=== PATIENT | female | born 1945 | race Caucasian/White ===

== ENCOUNTER 2023-07-20 11:40 | Outpatient (OUT) | payer SELFPAY ==
--- OUTSIDE RECORDS SUMMARY | 2023-08-03 02:05 | XMS_ITS | CCD ---
Author Name Unknown Address Formerly [facility], [facility] [place] [address] Organization [facility] Care Team Providers Care Boat Captain Name Role Phone REQUEST, DR NONE LISTED Admitting Unavaila ble REQUEST, NONE LISTED Consulting Unavaila ble REQUEST, NONE LISTED Attending Unavaila BILLY Snow Admitting Unavailable BILLY BEAUCHAMP Consulting Unavailable BILLY BEAUCHAMP Attending Unavailable YONAS ESPINOSA Attending Unavailable BAYLEE ODONNELL Referring Unavailable YONAS ESPINOSA Attending Unavailable Encounters Encounter Date Encounter Type Care Provider Facility Start: 07-27-2023 End: 07-27-2023 ambulatory YONAS ESPINOSA Not Available Start: 07-22-2023 End: 07-22-2023 ambulatory YONAS ESPINOSA Not Available Start: 12-10-2020 End: 12-11-2020 ambulatory BILLY BEAUCHAMP Facility:[facility] Start: 11-19-2020 End: 11-20-[address] NAIDU LISTED REQUEST Facility: Payers Date Payer Category Payer Unknown [id number] 2011 Medicare [id number] 1958 Self-pay 1945 Unknown [id number] 1945 Unknown [id number] Unknown [id number] 09.30. [id number] Unknown [id number] 09.30.83 [id number] Summary Purpose Family History No Family History Records FoundNo Family History Records Found Advance Directives No Advanced Directives Records FoundNo Advanced Directives Records Found Additional Source Comments INFORMATION SOURCE (unrecogn ized section and content) DATE CREATED AUTHOR 12/07/2020 [facility] DATE CREATED AUTHOR AUTHORClarita SUAZO 07/29/2023 [facility] dical Specialists [facility] FOR RECORDS PERTAINING TO PATIENTS WHO ARE OR HAVE BEEN ENROLLED IN A CHEMICAL DEPENDENCY/SUBSTANCEABUSE PROGRAM, SOME INFORMATION MAY BE OMITTED. This clinical summary was aggregated from multiple sources. Caution should be exercised in using it in the provision of clinical care. This summary normalizes information from multiple sources, and as a consequence, information in this document may materially change the coding, format and clinical context of patient data. In addition, data may be omitted in some cases. CLINICAL DECISIONS SHOULD BE BASED ON THE PRIMARY CLINICAL RECORDS. [facility] [employer] provides no warranty or guarantee of the accuracy or completeness of information in this document.
== END 2023-07-20 11:41 | disposition home or self-care (01) ==
LOC: PST 11:41
PROVIDERS: Visit Provider Ophthalmology
DX: Z01.818 Encounter for other preprocedural examination (principal); H25.812 Combined forms of age-related cataract, left eye

== ENCOUNTER 2023-07-21 06:54 | Day surgery (SDC) | payer MEDICARE, BC, SELFPAY ==
--- NOTE | 2023-07-20 | HP_ITS ---
Date: 07/20/2023 HISTORY: The patient is a 77-year-old white female presenting complaining of declining vision out of her left eye. This has been moderate in severity, gradually occurring in a constant fashion over the duration of approximately two years. She stated it affected her distance vision as well as work/computer distance. She has difficulty driving at night time due to glare and halos from headlights, and road signs are difficult to make out. PAST OCULAR HISTORY: Denies. PAST SURGICAL HISTORY: Denies. PAST MEDICAL HISTORY: Denies. SOCIAL HISTORY: Denies tobacco, alcohol or recreational drug abuse. SYSTEMIC MEDICATIONS: Denies. ALLERGIES TO MEDICATIONS: Denies. REVIEW OF SYSTEMS: No pertinent positives. PHYSICAL EXAM: GENERAL: In general, she is awake, alert and oriented x3, well developed, well nourished, in no acute distress. HEART: Regular rate and rhythm. LUNGS: Clear bilaterally. ABDOMEN: Soft, non-tender, non-distended. EXTREMITIES: No pitting edema. OPHTHALMIC EXAM: Revealed a visual acuity of 20/80 in the right and 20/60 in the left that glared to 20/400 bilaterally. Pupils motility, muscle balance and confrontational visual camilo within normal limits bilaterally. Pressures are measured at 16 bilaterally. Slit lamp exam revealed blepharitis with a severe decrease in tear film bilaterally. Conjunctiva, cornea, anterior chamber and iris were within normal limits bilaterally. Lens status demonstrated 3+ nuclear sclerosis with 1+ cortical cataract bilaterally. FUNDUS EXAM: Revealed good view with good dilation bilaterally. Optic discs, macula, vessels, periphery and vitreous were within normal limits bilaterally. ASSESSMENT AND PLAN: Visually significant cataract, left eye. After the risks, benefits, and alternatives as well as expectations were delivered to the patient, she elected to go forward with cataract removal. She understands those risks to include but not limited to infection, bleeding, loss of vision or loss of the eye itself. Secondly, she understands that postoperatively she is likely to require spectacle correction for her best visual acuity. Finally, a complete ophthalmic exam was performed and there was not determined to be any other source of vision decline other than that of cataract. After understanding all risks as well as expectations, she elected to go forward with the procedure as listed above and will be doing so in the near future. NABILA
--- NOTE | 2023-07-21 | OP_ITS ---
OPERATION DATE: 07/21/2023 SURGEON: Jayson Farmer M.D. PREOPERATIVE DIAGNOSIS: Nuclear sclerotic cataract left eye. POSTOPERATIVE DIAGNOSIS: Nuclear sclerotic cataract left eye. PROCEDURE NAME: Cataract extraction with intraocular lens placement for the left eye. ANESTHESIA: Topical. ESTIMATED BLOOD LOSS: Zero. COMPLICATIONS: None. PROCEDURE: Patient brought to the operating room in supine position. After proper identification, the left eye was prepped and draped in a sterile ophthalmic fashion. A paracentesis was created at the 5 o'clock position. Approximately 1 mL of unpreserved Xylocaine was injected into the anterior chamber followed by Amvisc Plus. Using a 2.6 mm Keratome blade, a clear corneal incision was created at the 3 o'clock limbus. A cystotome was then used to begin a curvilinear capsulorrhexis that was continued for 360 degrees with the Utrata forceps. BSS on a 26 gauge cannula was injected beneath the anterior capsule to hydrodissect as well as hydrodelineate the lens. After ensuring mobility, phacoemulsification was performed in a [id number]-type fashion. After all nuclear material had been removed from the eye, IA was introduced and all residual cortical material was cleaned up. Additional Amvisc Plus was injected into the posterior bag and a lens model MX60, 16.0 diopters was then injected and dialed into position. After ensuring centration, IA was reintroduced into the anterior chamber and all residual Amvisc Plus was removed from the eye. BSS on a 30 gauge cannula was injected into the stroma of both the clear corneal incision as well as the paracentesis to hydrate the wounds. Additional BSS was injected into the anterior chamber to pressurize the eye at approximately 20 to 22 mmHg by finger tension. 0.1 mL of antibiotic was injected into the anterior chamber and Weck-Lillian sponge was used to check the wounds to be watertight. One drop of Apraclonidine and one drop of prednisolone acetate were placed into the eye and a shield was placed over top. The patient was then sent to the postoperative area in satisfactory condition to follow up the following day for postoperative care. NABILA
[2023-07-21 07:10] VITALS: BP 153/93; PULSE 80; RESP 18; TEMP 36.5; O2SAT 97
[2023-07-21] MEDS: DIAZEPAM 5 MG TABLET PO (07:14)
[2023-07-21] MEDS: PHENYLEPHRINE HCL 2.5% OP SOL 40 DROP/2 ML BOTTLE OP ×4 (07:19→07:51)
[2023-07-21] MEDS: TROPICAMIDE 1% OP SOL 300 DROP/15 ML BOTTLE OP ×4 (07:19→07:51)
[2023-07-21] MEDS: BESIFLOXACIN HCL 100 DROP DROPS.SUSP OP ×4 (07:21→07:52)
[2023-07-21] MEDS: CYCLOPENTOLATE HCL 1% OP SOL 40 DROP/2 ML BOTTLE OP ×4 (07:21→07:51)
[2023-07-21 08:34] VITALS: BP 168/105; PULSE 64; RESP 18; O2SAT 99
[2023-07-21] MEDS: APRACLONIDINE HCL 100 DROP/5 ML BOTTLE OP (08:41)
[2023-07-21] MEDS: LIDOCAINE HCL 1% PF 20 MG/2 ML VIAL 1 ML INJ (08:42)
[2023-07-21] MEDS: HYALURONATE SODIUM 16 MG/ML SYRINGE EYE-LEFT (08:42)
[2023-07-21] MEDS: LIDOCAINE 2% JELLY 10 ML UR (08:42)
[2023-07-21] MEDS: PREDNISOLONE ACETATE OP 1% SUSP 100 DROPS/5 ML 1 DROP OP (08:43)
[2023-07-21] MEDS: BETADINE POVIDONE-IODINE 5% OP SOL 30 ML BOTTLE OP (08:43)
[2023-07-21] MEDS: TETRACAINE HCL 0.5% OP SOL 80 DROP/4 ML BOTTLE OP (08:43)
[2023-07-21] MEDS: PHENYLEPHRINE/KETOROLAC 1-0.3% ML VIAL 4 ML IRR (08:44)
[2023-07-21] MEDS: CEFUROXIME SODIUM 750 MG, 0.9 % SODIUM CHLORIDE 16.3 ML OP (08:44)
[2023-07-21] MEDS: PROPARACAINE HCL 0.5% 300 DROP/15 ML BOTTLE EYE-LEFT (08:46)
[2023-07-21 08:48] VITALS: BP 178/114; PULSE 67; RESP 18; O2SAT 100
== END 2023-07-21 09:00 | disposition home or self-care (01) ==
LOC: SURGOUT 06:56
PROVIDERS: Visit Provider Ophthalmology
PROC: (CPT 66984; principal; 2023-07-21 08:30)
DX: H25.12 Age-related nuclear cataract, left eye (principal)
CPT/HCPCS: 66984; V2630

== ENCOUNTER 2024-08-12 16:44 | Inpatient (IN) | payer MEDICARE, BC, SELFPAY ==
[2024-08-12] VITALS (60 sets, daily range): BP systolic 94–160; BP diastolic 75–132; PULSE 105–166; TEMP 36.5; O2SAT 93–119; BMI 30.5
--- OUTSIDE RECORDS SUMMARY | 2024-08-12 16:56 | XMS_ITS | CCD ---
Author Organization [facility] Care Team Providers Care Fire Patroller Name Role Phone REQUEST, DR NONE LISTED [...] Facility: Payers Date Payer Category Payer Unknown [id number] 2011 Medicare [id number] 1958 Self-pay 1945 Unknown [id number] 1945 Unknown [id number] Unknown [id number] 09.30.83 [id number] Unknown [id number] 09.30.83 [id number] Summary Purpose Family History No Family History Records FoundNo Family History Records Found Advance Directives No Advanced Directives Records FoundNo Advanced Directives Records Found Additional Source Comments INFORMATION SOURCE (unrecogn ized section and content) DATE CREATED AUTHOR 12/07/2020 [facility] DATE CREATED AUTHOR AUTHOR'S TREMAINE SUAZO 07/29/2023 [facility] dical Specialists [facility] FOR RECORDS PERTAINING TO PATIENTS WHO ARE [...] BE BASED ON THE PRIMARY CLINICAL RECORDS. [facility] [employer] provides no warranty or guarantee of the accuracy or completeness of information in this document.
--- NOTE | 2024-08-12 17:36 | ECG_ITS ---
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
--- NOTE | 2024-08-12 17:36 | XR_ITS ---
The [address] [address] Patient Name: JEAN PIERRE ORELLANA MRN: [id number] date: 1945 Sex: F Assigned Patient Location: ER Current Patient Location: ER Accession/Order Number: [id number] Exam Date: 08/12/2024 18:00 Report Date: 08/12/2024 18:56 At the request of: JUSTINA GORDON Procedure: XR chest 1V Exam: Radiographs: XR chest 1V Reason for exam: short of breath Comparison: None XR/XR chest 1V IMPRESSION: Atelectasis and/or infiltrate in the lower lungs bilaterally. Small bilateral pleural effusions. Pulmonary venous hypertension. Remainder of the chest is unremarkable. Electronically authenticated by: SARA FISCHER Date: 08/12/2024 18:56
--- NOTE | 2024-08-12 17:44 | ED.GENADUL1 ---
HPI HPI - General Adult General Chief complaint: Shortness of Breath/Dyspnea Stated complaint: sob Time Seen by Provider: 08/12/24 17:31 Source: patient Mode of arrival: Wheelchair History of Present Illness HPI narrative: 79-year-old female presents here with a chief complaint of increased heart rate and shortness of breath. Patient states she has not felt well over the last couple of weeks. She does have a history of smoking but states quit smoking 2 weeks ago. Patient presents today with irregular heart rate. She states she feels her heart racing and slowing down. Denies a history of atrial fibrillation. Denies any chest pain. She states she has had increased shortness of breath with ambulation and activity. Patient came here for evaluation today because her daughter made her come. states she had not Seen a physician in over 5 years. Denies any recent weight loss or weight gain. Related Data Home Medications ?Medication ?Instructions ?Recorded ?Confirmed No Known Home Medications 08/12/24 08/12/24 Allergies Allergy/AdvReac Type Severity Reaction Status Date / Time No Known Drug Allergies Allergy Verified 07/18/23 13:10 Opioid HPI Opioid Management Most Recent Opioid Data: No Data to Display Review of Systems ROS Narrative All Systems are negative except as noted/marked.All systems reviewed and otherwise negative PFSH PFS Medical History (Updated 08/12/24 @ 19:52 by Libby Shrestha) Restless leg ?G25.81 - Restless legs syndrome (ICD-10) Surgical History (Updated 07/18/23 @ 13:09 by Patrick Fenrandez) H/O tubal ligation ?Z98.51 - Tubal ligation status (ICD-10) Social History (Updated 07/21/23 @ 07:09 by Rocio Pruitt) Within the past year, how often did you have a drink containing alcohol: 4 or more times a week Within the past year, how many standard drinks containing alcohol did you have on a typical day: 3 or 4 Within the past year, how often did you have six or more drinks on one occasion: weekly Total score: 5 Score interpretation: A score of 3 or more indicates drinking is likely to affect patient's safety. Smoking status: Current every day smoker Non-prescribed substance use: denies use Previous occupational history: retired Highest level of school completed/degree received: high school graduate Little interest or pleasure in doing things: not at all Feeling down, depressed, or hopeless: not at all Exam Narrative Exam Narrative: Nurses note and vital signs reviewed and patient is not hypoxic. General: The patient appears well and in no apparent distress. Patient is resting comfortably on cart. Skin: Warm, dry, no pallor noted. There is no rash noted. Head: Normocephalic, atraumatic Eye: Normal conjunctiva, no drainage, EOMI. PERRL Ears, Nose, Mouth, and Throat: oral mucosa is moist. Nares patent. Mouth without vesicles. Ear canals patent. Tm's without Erythema Cardiovascular: increased irregular heart rate Respiratory: Patient is in no distress, no accessory muscle use, lungs are clear to auscultation, no wheezing, rales or rhonchi Back: non-tender, no CVA tenderness bilaterally to percussion. GI: Normal bowel sounds, no tenderness to palpation, no masses appreciated. No rebound, guarding, or rigidity noted. Musculoskeletal: The patient has no evidence of calf tenderness, no pitting edema, symmetrical pulses noted bilaterally Neurological: A&O x4, normal speech Psychiatric: Cooperative Constitutional Vital Signs, click to edit/add: Last Vital Signs Pulse 139 H 08/12/24 18:50 Resp 21 H 08/12/24 18:50 BP 143/98 H 08/12/24 20:11 Pulse Ox 96 08/12/24 18:50 O2 Del Method Room Air 08/12/24 17:50 Course Vital Signs Vital signs: Vital Signs Pulse Rate 110 H 08/12/24 17:23 Respiratory Rate 18 08/12/24 17:23 Blood Pressure 145/88 H 08/12/24 17:23 Pulse Oximetry 96 08/12/24 17:23 Pulse Rate 139 H 08/12/24 18:50 Respiratory Rate 21 H 08/12/24 18:50 Blood Pressure 143/98 H 08/12/24 20:11 Pulse Oximetry 96 08/12/24 18:50 Oxygen Delivery Method Room Air 08/12/24 17:50 Medical Decision Making [facility] Narrative Medical decision making narrative: 79-year-old female presents here with a chief complaint of increased heart rate and shortness of breath. Patient states she has not felt well over the last couple of weeks. She does have a history of smoking but states quit smoking 2 weeks ago. Patient presents today with irregular heart rate. She states she feels her heart racing and slowing down. Denies a history of atrial fibrillation. Denies any chest pain. She states she has had increased shortness of breath with ambulation and activity. Patient came here for evaluation today because her daughter made her come. states she had not Seen a physician in over 5 years. Denies any recent weight loss or weight gain. Arrival to the emergency room, EKG was obtained and found to have atrial fibrillation. Patient denies known history and stated she had not seen a doctor in over 5 years. She denies any chest pain to states she felt her heart racing on and off for the last couple of weeks and daughter brought her here for evaluation CBC BMP troponin lab work was also performed. Patient was immediately started on a Cardizem given a Cardizem drip of 15 mg IV initially followed by 10 mg of IV drug. Has gone down to 130s up to 150s back down to 130s initial 10 mg IV bolus was given. Your patient's blood work was unremarkable other than mildly elevated BNP at 5300. Patient denies chest pain shortness of breath. Vital signs remained stable including blood pressure. Patient be admitted to telemetry. This is new onset atrial fibrillation. I spoke to around the hospitalist on-call who agrees for admission. Differential Diagnosis Differential Diagnosis: afib, rapid heart Medical Records Medical records reviewed: Yes I reviewed the patient's medical records Lab Data Lab results reviewed: Yes I reviewed the patient's lab results Labs: Lab Results 08/12/24 Range/Units 17:40 WBC 7.7 (4.0-11.0) 10^3/uL RBC 4.27 (4.20-5.40) 10^6/uL Hgb 14.9 (12.0-16.0) g/dL Hct 44.1 (36.0-48.0) % MCV 103.3 H (81.0-99.0) fL MCH 34.9 H (26.7-34.0) pg MCHC 33.8 (29.9-35.2) g/dL RDW 14.7 (11.0-15.0) % Plt Count 271 (150-450) 10^3/uL MPV 10.9 (9.5-13.5) fL Neut % (Auto) 63.4 (43.0-75.0) % Lymph % (Auto) 25.6 (20.5-60.0) % [place] % (Auto) 9.4 (1.7-12.0) % Eos % (Auto) 0.8 L (0.9-7.0) % Baso % (Auto) 0.5 (0.2-2.0) % Neut # (Auto) 4.9 (1.4-6.5) 10^3/uL Lymph # (Auto) 2.0 (1.2-3.8) 10^3/uL [place] # (Auto) 0.7 (0.3-0.8) 10^3/uL Eos # (Auto) 0.1 (0.0-0.7) 10^3/uL Baso # (Auto) 0.0 (0.0-0.1) 10^3/uL Abs Immat Gran (auto) 0.02 (0.00-0.03) 10^3/uL Imm/Tot Granulo (auto) 0.3 (0.0-0.5) % PT 11.0 (9.0-11.6) sec INR 1.04 APTT 24.5 (22.3-36.2) sec Sodium 141 (136-145) mmol/L Potassium 3.7 (3.5-5.1) mmol/L Chloride 107 (98-107) mmol/L Carbon Dioxide 23.2 (21.0-32.0) mmol/L Anion Gap 14.5 BUN 14.0 (7.0-18.0) mg/dL Creatinine 1.26 H (0.55-1.02) mg/dL Est GFR ( Amer) 50 L (>=60 mL/min/1.73m^2) Est GFR (Non-Af Amer) 41 L (>=60 mL/min/1.73m^2) BUN/Creatinine Ratio 11.1 Glucose 112 H (74-106) mg/dL Calcium 8.9 (8.5-10.1) mg/dL Total Bilirubin 1.3 H (0.2-1.0) mg/dL AST 31 (15-37) U/L ALT 41 (14-59) U/L Alkaline Phosphatase 90 (46-116) U/L Troponin I High Sens 8.4 (4.0-51.3) pg/mL NT-Pro-B Natriuret Pep 5314.0 H* (<=1800.0) pg/mL Total Protein 6.8 (6.4-8.2) g/dL Albumin 3.1 L (3.4-5.0) g/dL Globulin 3.7 g/dL Albumin/Globulin Ratio 0.8 TSH 2.435 (0.358-3.740) uIU/mL Ethanol Quant <3 mg/dL Imaging Data Chest x-ray: Radiologist's impression: ITS Impressions Chest X-Ray 08/12/24 17:36 IMPRESSION: Atelectasis and/or infiltrate in the lower lungs bilaterally. Small bilateral pleural effusions. Pulmonary venous hypertension. Remainder of the chest is unremarkable. Electronically authenticated by: ASRA FISCHER Date: 08/12/2024 18:56 ECG Data Interpretation: 1732 EKG shows a rate of 150 b[address] atrial fibrillation no ST depression. New onset A-fib no history of previous 1906 atrial fibrillation with a rate of 126 bpm QRS duration 78 ms, similar to previous EKG performed at 1732. Discharge Plan Discharge Chief Complaint: Shortness of Breath/Dyspnea Clinical Impression: Atrial fibrillation Patient Disposition: Admitted As Inpatient Time of Disposition Decision: 19:52 Condition: Good
[2024-08-12 17:55] LABS: Basophils Percent Auto 0.5 % (0.2-2.0); Eosinophils Absolute Auto 0.1 10^3/uL (0.0-0.7); Eosinophils Percent Auto 0.8 % (0.9-7.0); Hematocrit 44.1 % (36.0-48.0); Hemoglobin 14.9 g/dL (12.0-16.0); Immature Granulocytes Abs Auto 0.02 10^3/uL (0.00-0.03); Immature Granulocytes Pct Auto 0.3 % (0.0-0.5); Lymphocytes Percent Auto 25.6 % (20.5-60.0); Mean Corpuscular HGB Conc 33.8 g/dL (29.9-35.2); Mean Corpuscular Hemoglobin 34.9 pg (26.7-34.0); Mean Corpuscular Volume 103.3 fL (81.0-99.0); Mean Platelet Volume 10.9 fL (9.5-13.5); Monocytes Absolute Auto 0.7 10^3/uL (0.3-0.8); Monocytes Percent Auto 9.4 % (1.7-12.0); Neutrophils Absolute Auto 4.9 10^3/uL (1.4-6.5); Neutrophils Percent Auto 63.4 % (43.0-75.0); Platelet Count 271 10^3/uL (150-450); Red Blood Count 4.27 10^6/uL (4.20-5.40); Red Cell Distribution Width 14.7 % (11.0-15.0); White Blood Count 7.7 10^3/uL (4.0-11.0)
[2024-08-12 18:12] LABS: INR 1.04; Partial Thromboplastin Time 24.5 sec (22.3-36.2)
[2024-08-12] MEDS: DILTIAZEM HCL 25 MG/5 ML VIAL 15 MG IV (18:12)
[2024-08-12] MEDS: dilTIAZem HCL 125 MG in 0.9 % SODIUM CHLORIDE 100 ML 10 MG IV (18:16)
[2024-08-12] MEDS: ENOXAPARIN SODIUM 80 MG/0.8 ML SYRINGE SUBQ (18:18)
[2024-08-12 18:20] LABS: Ethanol <3 mg/dL
[2024-08-12 18:35] LABS: Alanine Aminotransferase 41 U/L (14-59); Albumin Globulin Ratio 0.8; Albumin Level 3.1 g/dL (3.4-5.0); Alkaline Phosphatase 90 U/L (46-116); Anion Gap 14.5; Aspartate Amino Transferase 31 U/L (15-37); BUN Creatinine Ratio 11.1; Bilirubin Total 1.3 mg/dL (0.2-1.0); Calcium 8.9 mg/dL (8.5-10.1); Carbon Dioxide 23.2 mmol/L (21.0-32.0); Chloride 107 mmol/L (98-107); Estimated GFR (African America 50 (>=60 mL/min/1.73m^2); Estimated GFR (Non-African Ame 41 (>=60 mL/min/1.73m^2); Globulin 3.7 g/dL; Glucose 112 mg/dL (74-106); Potassium 3.7 mmol/L (3.5-5.1); Sodium 141 mmol/L (136-145); Thyroid Stimulating Hormone 2.435 uIU/mL (0.358-3.740); Total Protein 6.8 g/dL (6.4-8.2); Troponin I High Sensitivity 8.4 pg/mL (4.0-51.3)
--- NOTE | 2024-08-12 18:41 | ECG_ITS ---
The [facility] Test Date: 2024-08-12 Pat Name: JEAN PIERRE ORELLANA Department: Room: - Gender: Female Otologist: : 1945 Requested By: EZE CLARKE Order Number: [id number] Reading MD: YOLIE BLISS Measurements Intervals [place] Rate: 126 P: -98292 PA: -01488 QRS: 116 QRSD: 78 T: 203 QT: 308 QTc: 383 Interpretive Statements 56378 Atrial fibrillation with rapid ventricular response 84759 Nonspecific Twave abnormality, probably digitalis effect 5120 Possible right ventricular hypertrophy 9140 abnormal rhythm ECG Compared to ECG 08/12/2024 17:32:01 No significant changes Electronically Signed On 08-14-2024 14:55:02 EST by YOLIE BLISS
[2024-08-12] MEDS: DILTIAZEM HCL 25 MG/5 ML VIAL 10 MG IV (20:11)
--- NOTE | 2024-08-12 21:02 | PC.NURSE ---
Pt remains in AF with RVR of 120-150. Cardizem titrated up to 12 mg/hr.
--- OUTSIDE RECORDS SUMMARY | 2024-08-12 21:20 | XMS_ITS | CCD ---
Author Organization [facility] Care Team Providers Care Benefits Consultant Name Role Phone REQUEST, DR NONE LISTED [...] Facility: Payers Date Payer Category Payer Unknown [id number] 2011 Medicare [id number] 1958 Self-pay 1945 Unknown [id number] 1945 Unknown [id number] Unknown [id number] 09.30.83 [id number] Unknown [id number] 09.30.83 [id number] Summary Purpose Family History No Family History Records FoundNo Family History Records Found Advance Directives No Advanced Directives Records FoundNo Advanced Directives Records Found Additional Source Comments INFORMATION SOURCE (unrecogn ized section and content) DATE CREATED AUTHOR 12/07/2020 [facility] DATE CREATED AUTHOR AUTHOR'S TREMAINE SUAZO 07/29/2023 [facility] dical Specialists [facility] FOR RECORDS PERTAINING TO PATIENTS WHO [...] BE BASED ON THE PRIMARY CLINICAL RECORDS. [facility] [employer] provides no warranty or guarantee of the accuracy or completeness of information in this document.
[2024-08-12 21:40] LABS: Bilirubin Urine MODERATE (NEGATIVE); Blood Urine TRACE-I (NEGATIVE); Clarity Urine CLEAR (CLEAR); Color Urine YELLOW (YELLOW); Glucose Urine UA NEGATIVE (NEGATIVE); Ketones Urine >=80 mg/dL (NEGATIVE); Leukocyte Esterase Urine SMALL (NEGATIVE); Nitrite Urine NEGATIVE (NEGATIVE); Protein Urine TRACE mg/dL (NEG/TRACE); Specific Gravity Urine >=1.030 (1.005-1.025)
[2024-08-12 21:42] LABS: Urine Microscopic Indicated YES
[2024-08-12 21:53] LABS: Bacteria Urine MODERATE #/HPF (NONE SEEN); Cast Seen? SEEN #/LPF (NONE SEEN); Crystals Seen? None Seen #/HPF (None Seen); Hyaline Casts Urine RARE; Mucus Urine MODERATE (NONE SEEN); RBC Urine 0-2 #/HPF (0-2); Squamous Epithelial Cell Urine FEW #/LPF (NONE/RARE); Urine Culture Indicated YES
[2024-08-13] VITALS (155 sets, daily range): BP systolic 110–165; BP diastolic 63–140; PULSE 89–137; TEMP 36.1–36.5; O2SAT 95–132
[2024-08-13] MEDS: METOPROLOL TARTRATE 5 MG/5 ML VIAL IVP (01:18)
[2024-08-13] MEDS: dilTIAZem HCL 125 MG in 0.9 % SODIUM CHLORIDE 100 ML 10 MG IV (04:12)
[2024-08-13 05:29] LABS: pH VBG 7.397 (7.330-7.430)
[2024-08-13 05:30] LABS: PCO2 VBG 39.2 mmHg (40.0-52.0)
[2024-08-13 05:32] LABS: Basophils Absolute Auto 0.1 10^3/uL (0.0-0.1); Basophils Percent Auto 0.8 % (0.2-2.0); Eosinophils Absolute Auto 0.1 10^3/uL (0.0-0.7); Eosinophils Percent Auto 1.7 % (0.9-7.0); Hemoglobin 14.1 g/dL (12.0-16.0); Immature Granulocytes Abs Auto 0.02 10^3/uL (0.00-0.03); Immature Granulocytes Pct Auto 0.3 % (0.0-0.5); Lymphocytes Absolute Auto 1.8 10^3/uL (1.2-3.8); Lymphocytes Percent Auto 27.9 % (20.5-60.0); Mean Corpuscular HGB Conc 32.8 g/dL (29.9-35.2); Mean Corpuscular Hemoglobin 33.7 pg (26.7-34.0); Mean Corpuscular Volume 102.9 fL (81.0-99.0); Mean Platelet Volume 10.7 fL (9.5-13.5); Monocytes Absolute Auto 0.7 10^3/uL (0.3-0.8); Monocytes Percent Auto 10.3 % (1.7-12.0); Neutrophils Absolute Auto 3.7 10^3/uL (1.4-6.5); Platelet Count 241 10^3/uL (150-450); Red Blood Count 4.18 10^6/uL (4.20-5.40); Red Cell Distribution Width 14.6 % (11.0-15.0); White Blood Count 6.3 10^3/uL (4.0-11.0)
[2024-08-13 05:46] LABS: Estimated Average Glucose 105 mg/dL; Glycohemoglobin A1C 5.3 % (4.5-6.2)
[2024-08-13 05:48] LABS: Alanine Aminotransferase 36 U/L (14-59); Albumin Globulin Ratio 0.8; Albumin Level 2.9 g/dL (3.4-5.0); Alkaline Phosphatase 74 U/L (46-116); Anion Gap 16.3; Aspartate Amino Transferase 27 U/L (15-37); BUN Creatinine Ratio 12.1; Bilirubin Total 1.3 mg/dL (0.2-1.0); Calcium 8.7 mg/dL (8.5-10.1); Carbon Dioxide 23.9 mmol/L (21.0-32.0); Chloride 107 mmol/L (98-107); Chol HDL Ratio 3.4; Cholesterol 143 mg/dL (<=200); Estimated GFR (African America >60 (>=60 mL/min/1.73m^2); Estimated GFR (Non-African Ame 50 (>=60 mL/min/1.73m^2); Globulin 3.5 g/dL; Glucose 96 mg/dL (74-106); HDL Cholesterol 42 mg/dL (40-60); LDL Cholesterol Calculated 81.6 mg/dL; Potassium 3.2 mmol/L (3.5-5.1); Sodium 144 mmol/L (136-145); Total Protein 6.4 g/dL (6.4-8.2); Triglycerides 97 mg/dL (<=150); VLDL CHOLESTEROL 19.4 mg/dL
[2024-08-13 05:56] LABS: Troponin I High Sensitivity 9.8 pg/mL (4.0-51.3)
--- NOTE | 2024-08-13 06:00 | ECG_ITS ---
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
[2024-08-13 06:42] LABS: Lactate/Lactic Acid 1.8 mmol/L (0.4-2.0)
[2024-08-13 06:45] LABS: Thyroid Stimulating Hormone 1.971 uIU/mL (0.358-3.740)
--- NOTE | 2024-08-13 07:00 | CA_ITS ---
Patient Name: JEAN PIERRE ORELLANA MR#: [id number] : 1945 Exam Date: 08/13/2024 Ordering Doctor: FERMIN FRAIRE ECHOCARDIOGRAM REPORT PROCEDURE: CA ECHO DOPPLER COMPLETE INDICATIONS: a-fib with RVR, elevated BNP, smoker COMPARISON: None. DESCRIPTION: COMPLETE ECHOCARDIOGRAM Real-time transthoracic echocardiography with 2D, M-mode, spectral and color flow Doppler performed. QUALITY: Technical quality was good. LEFT VENTRICLE: Mild dilatation. Normal left ventricular wall thickness. Moderately reduced LV systolic function, global hypokinesis, EF 35-40% LV EF: DIASTOLIC: Unable to evaluate. ATRIAL SEPTUM: Visually appears intact. LEFT ATRIUM: Normal chamber size. RIGHT ATRIUM: Normal chamber size. RIGHT VENTRICLE: Normal chamber size and systolic function. TRICUSPID VALVE: Normal mobility and thickness. No stenosis with trivial regurgitation. Doppler studies reveal mildly (35-45) elevated right sided pressures.RVSP 41 mmHg MITRAL VALVE: Normal mobility and thickness. No evidence of mitral valve stenosis. There is no mitral annular calcification. Mild mitral regurgitation. AORTIC VALVE: Normal trileaflet appearance. No visible sclerosis. Normal leaflet mobility. No evidence of aortic valve stenosis. No aortic regurgitation. AORTIC ROOT: Normal diameter and appearance. PULMONIC VALVE: Normal thickness and mobility. No stenosis. No regurgitation. PERICARDIUM: No effusion, prominent fatty pad is noted IVC: IVC is dilated (2.3 cm) with no respiratory collapse. PLEURA: CONCLUSION: Mildly dilated left ventricle Moderately reduced left ventricular systolic function and global function, ejection fraction 35 to 40% Mild pulmonary hypertension, RVSP 41 mmHg Mild mitral regurgitation Dilated IVC with absence of respiratory collapse consistent with elevated central venous pressure, RAP 15 mmHg Prominent pericardial fat pad Adult Echocardiography Procedure Report Left Ventricle LVEDD (3.7 - 5.6 cm): 5.45 cm LVESD (2.2 - 4.0 cm): 4.96 cm LVIVS thickness (0.6 - 1.2 cm): 0.83 cm LVPW thickness (0.5 - 1.0 cm): 0.91 cm LVOT Max Gradient: 1.76 mm[Hg], 1.24 mm[Hg], 0.43 mm[Hg] LVOT Area (cm2): 0.52 m/s Peak Velocity (LVOT): 0.66 m/s, 0.56 m/s, 0.33 m/s LVOT Diameter 2.07 cm Left Atrium LA Volume Index (2D A2C): 35.08 ml/m2 Left Atrium Systolic Dimension: 4.14 cm Mitral Valve Mitral Valve E-Wave Peak Velocity: 0.98 m/s Right Ventricle Aorta AO Root Diam: 3.07 cm Aortic Valve AoV Area (Peak Ari): 2.04 cm2, 3.14 cm2, 2.32 cm2, 1.07 cm2 Peak Velocity(Antegrade Flow): 0.71 m/s, 0.81 m/s, 1.03 m/s Peak Gradient(Antegrade Flow): 2.01 mm[Hg], 2.59 mm[Hg], 4.25 mm[Hg] Tricuspid Valve Peak Velocity (Regurgitant Flow): 2.51 m/s, 2.58 m/s Pulmonic Valve Mean Gradient: 1.33 mm[Hg] Mean Velocity: 0.54 m/s Peak Velocity: 0.84 m/s, 0.56 m/s Peak Gradient: 1.26 mm[Hg], 2.82 mm[Hg] Right Atrium Right Atrium Systolic Pressure: 51.15 ml, 51.15 ml Dictated by: Reid Bhardwaj MD on 08/13/2024 at 16:21 Approved by: Reid Bhardwaj MD on 08/13/2024 at 16:30
[2024-08-13] MEDS: LEVOFLOXACIN IN DEXTROSE 5 % 750 MG/150 ML PREMIX 100 MG IV (08:07)
[2024-08-13] MEDS: APIXABAN 5 MG TABLET PO ×2 (08:07→23:31)
[2024-08-13] MEDS: METOPROLOL TARTRATE 50 MG TABLET PO ×2 (08:07→19:14)
--- NOTE | 2024-08-13 08:20 | P.HP_ITS ---
HPI H&P: HPI History of Present Illness Chief complaint: New Onset A-fib Narrative: Patient presented to the emergency room with palpitations. She has not seen a doctor in quite some time, she does have a history of alcohol abuse, in ER found to have atrial fibrillation with rapid ventricular response, placed on Cardizem drip, heart rate still significantly elevated When I saw patient up in the ICU, heart rate still in the 120s to 130s, patient can still feel the palpitations. Denies chest tightness or heaviness, denies shortness of breath but not active, Opioid HPI Opioid Management Most Recent Pain and Opioid Data: Last Pain Assessment 08/13/24 09:00 Last ORT Total Score 0 08/12/24 21:38 08/12/24 Last ORT Risk Category Low Risk 08/12/24 21:38 08/12/24 Review of Systems ROS Status of ROS 10 or more systems reviewed and unremark able except as noted in history and below PFSH PFSH Medical History Anxiety ?F41.9 - Anxiety disorder, unspecified (ICD-10) Smoker ?F17.200 - Nicotine dependence, unspecified, uncomplicated (ICD-10) Restless leg ?G25.81 - Restless legs syndrome (ICD-10) Surgical History (Updated 08/12/24 @ 22:54 by Libby Amaya) History of cataract surgery ?Z98.49 - Cataract extraction status, unspecified eye (ICD-10) H/O tubal ligation ?Z98.51 - Tubal ligation status (ICD-10) Social History (Updated 07/21/23 @ 07:09 by Rocio Pruitt) Within the past year, how often did you have a drink containing alcohol: 4 or more times a week Within the past year, how many standard drinks containing alcohol did you have on a typical day: 3 or 4 Within the past year, how often did you have six or more drinks on one occasion: weekly Total score: 5 Score interpretation: A score of 3 or more indicates drinking is likely to affect patient's safety. Smoking status: Current every day smoker Non-prescribed substance use: denies use Previous occupational history: retired Highest level of school completed/degree received: high school graduate Little interest or pleasure in doing things: several days Feeling down, depressed, or hopeless: several days Do you think of yourself as: straight/heterosexual Gender Identity: female Meds Home Medications and Allergies Home Medications ?Medication ?Instructions ?Recorded ?Confirmed ?Type No Known Home Medications 08/12/24 08/12/24 History Allergies Allergy/AdvReac Type Severity Reaction Status Date / Time No Known Drug Allergies Allergy Verified 07/18/23 13:10 Exam Constitutional Vital Signs, click to edit/add: Last Vital Signs Temp 97.6 F 08/13/24 04:14 Pulse 124 H 08/13/24 08:00 Resp 16 08/13/24 07:50 BP 124/94 H 08/13/24 07:44 Pulse Ox 96 08/13/24 04:14 O2 Del Method Room Air 08/12/24 22:46 Documenting provider has reviewed patient's vital signs: yes Common normals: apparent distress (Distress secondary to the palpitations) Respiratory Common normals: normal respiratory effort, no retractions and clear to auscultation bilaterally Cardio Common normals: irregular rate and irregular rhythm Rate: tachycardic Rhythm: abnormal rhythm GI Common normals: Normal to inspection, nondistended, normoactive bowel sounds present Extremity Common normals: normal to inspection and no clubbing, cyanosis or edema Neuro Common normals: oriented x3, CN's II-XII intact bilaterally and moves all extremities Results Labs Labs: Short CBC 08/12/24 08/13/24 Range/Units 17:40 04:45 WBC 7.7 6.3 (4.0-11.0) 10^3/uL Hgb 14.9 14.1 (12.0-16.0) g/dL Hct 44.1 43.0 (36.0-48.0) % Plt Count 271 241 (150-450) 10^3/uL BMP 08/12/24 08/13/24 17:40 04:45 Sodium 141 144 Potassium 3.7 3.2 L Chloride 107 107 Carbon Dioxide 23.2 23.9 BUN 14.0 13.0 Creatinine 1.26 H 1.07 H Glucose 112 H 96 Calcium 8.9 8.7 Liver Function 08/12/24 08/13/24 Range/Units 17:40 04:45 Total Bilirubin 1.3 H 1.3 H (0.2-1.0) mg/dL AST 31 27 (15-37) U/L ALT 41 36 (14-59) U/L Alkaline Phosphatase 90 74 (46-116) U/L Albumin 3.1 L 2.9 L (3.4-5.0) g/dL Urine 08/12/24 Range/Units 21:28 Urine Color Yellow (YELLOW) Urine Clarity Clear (CLEAR) Urine pH 6.0 (5.0-9.0) Ur Specific [place] >=1.030 A (1.005-1.025) Urine Protein Trace (NEG/TRACE) mg/dL Urine Glucose (UA) Negative (NEGATIVE) mg/dL ABG ABG results: 08/13/24 04:45 VBG pH 7.397 VBG pCO2 39.2 L Assessment and Plan Assessment and Plan (1) Atrial fibrillation: (2) Anxiety: Plan Admission findings: Tachycardia, respiratory distress, mild hypotension, a left lower lobe pneumonia with possible left pleural effusion and acute UTI result doing in atrial fibrillation with rapid ventricular response Atrial fibrillation with rapid ventricular response -add beta-poornima, try to wean Cardizem drip, consider Lanoxin, consult to cardiology, echocardiogram Possible left lower lobe pneumonia-antibiotics Likely acute UTI-culture pending, continue with antibiotics Mild acute kidney injury-repeat labs later today are still pending Alcohol abuse history-placed on CIWA scale and as needed medications Admission status: Patient with acute onset of atrial fibrillation with rapid ventricular spots, still tachycardic after the first midnight, medically necessary treatment will span 2 midnights. Inpatient status
--- NOTE | 2024-08-13 09:07 | CM.NOTE ---
Rounds made with Dr. Vernon, HR remains elevated. Discussed with pt about rate control and Eliquis. Dr. Vernon will consult cardiology for further recommendations. No dishcarge today, will get cardiac echo.
--- NOTE | 2024-08-13 17:35 | P.CACN_ITS ---
History of Present Illness History of Present Illness Consult date: 08/13/24 Requesting physician: Mauricio Vernon Chief complaint: New Onset A-fib Narrative: Patient is a 79-year-old female without prior cardiac history she denies history of hypertension, hyperlipidemia or diabetes mellitus. She was not on any medications. The patient is heavy smoker for many years and she quit 08/07/2024. She also used to drink at least 8 drinks a night for many years and she stopped also evening. She denies any illicit drugs Since her evening she has been experiencing worsening shortness of breath with palpitations. She denies any chest pain or dizziness. She denies orthopnea, paroxysmal nocturnal dyspnea or leg edema or discomfort on exertion. She was found to be in atrial fibrillation with rapid ventricular rate and she was started on Cardizem IV infusion and she was switched today to metoprolol 50 mg twice daily and Cardizem was discontinued. She was started on Eliquis 5 mg twice daily. Her chest x-ray showed mild congestion and small pleural effusions. Review of Systems ROS Narrative All systems were reviewed and they were negative except for the positive findings noted above in the history [facility] Medical History Anxiety ?F41.9 - Anxiety disorder, unspecified (ICD-10) Smoker ?F17.200 - Nicotine dependence, unspecified, uncomplicated (ICD-10) Restless leg ?G25.81 - Restless legs syndrome (ICD-10) Surgical History (Updated 08/12/24 @ 22:54 by Libby Amaya) History of cataract surgery ?Z98.49 - Cataract extraction status, unspecified eye (ICD-10) H/O tubal ligation ?Z98.51 - Tubal ligation status (ICD-10) Social History (Updated 07/21/23 @ 07:09 by Rocio Pruitt) Within the past year, how often did you have a drink containing alcohol: 4 or more times a week Within the past year, how many standard drinks containing alcohol did you have on a typical day: 3 or 4 Within the past year, how often did you have six or more drinks on one occasion: weekly Total score: 5 Score interpretation: A score of 3 or more indicates drinking is likely to affect patient's safety. Smoking status: Current every day smoker Non-prescribed substance use: denies use Previous occupational history: retired Highest level of school completed/degree received: high school graduate Little interest or pleasure in doing things: several days Feeling down, depressed, or hopeless: several days Do you think of yourself as: straight/heterosexual Gender Identity: female Meds Home Medications and Allergies Home Medications ?Medication ?Instructions ?Recorded ?Confirmed ?Type No Known Home Medications 08/12/24 08/12/24 History Allergies Allergy/AdvReac Type Severity Reaction Status Date / Time No Known Drug Allergies Allergy Verified 07/18/23 13:10 Exam Narrative Exam Narrative: She is alert, oriented, not in apparent distress HEENT: Within normal limits Neck: Supple, normal range of motion, no lymphadenopathies, no carotid bruit, jugular venous pressure is elevated Lungs: Clear to auscultation without rales rhonchi or wheezes Cardiovascular system: Tachycardic, irregular irregularity, normal S1 and S2, no murmur or gallop or click Extremities: No edema or cyanosis or clubbing Neurological examination: Grossly normal Constitutional Vital Signs, click to edit/add: Last Vital Signs Temp 97.6 F 08/13/24 04:14 Pulse 128 H 08/13/24 17:18 Resp 18 08/13/24 15:40 BP 112/92 H 08/13/24 11:50 Pulse Ox 97 08/13/24 11:00 O2 Del Method Room Air 08/13/24 15:43 Results Labs and Meds Lab results: Cardiac Enzymes 08/12/24 08/13/24 Range/Units 17:40 04:45 AST 31 27 (15-37) U/L Coagulation 08/12/24 Range/Units 17:40 PT 11.0 (9.0-11.6) sec APTT 24.5 (22.3-36.2) sec Lipids 08/13/24 Range/Units 04:45 Triglycerides 97 (<=150) mg/dL Cholesterol 143 (<=200) mg/dL HDL Cholesterol 42 (40-60) mg/dL Cholesterol/HDL Ratio 3.4 CBC 08/12/24 08/13/24 Range/Units 17:40 04:45 WBC 7.7 6.3 (4.0-11.0) 10^3/uL RBC 4.27 4.18 L (4.20-5.40) 10^6/uL Hgb 14.9 14.1 (12.0-16.0) g/dL Hct 44.1 43.0 (36.0-48.0) % Plt Count 271 241 (150-450) 10^3/uL Neut # (Auto) 4.9 3.7 (1.4-6.5) 10^3/uL Lymph # (Auto) 2.0 1.8 (1.2-3.8) 10^3/uL [place] # (Auto) 0.7 0.7 (0.3-0.8) 10^3/uL Eos # (Auto) 0.1 0.1 (0.0-0.7) 10^3/uL Baso # (Auto) 0.0 0.1 (0.0-0.1) 10^3/uL Comprehensive Metabolic Panel 08/12/24 08/13/24 Range/Units 17:40 04:45 Sodium 141 144 (136-145) mmol/L Potassium 3.7 3.2 L (3.5-5.1) mmol/L Chloride 107 107 (98-107) mmol/L Carbon Dioxide 23.2 23.9 (21.0-32.0) mmol/L BUN 14.0 13.0 (7.0-18.0) mg/dL Creatinine 1.26 H 1.07 H (0.55-1.02) mg/dL Glucose 112 H 96 (74-106) mg/dL Calcium 8.9 8.7 (8.5-10.1) mg/dL AST 31 27 (15-37) U/L ALT 41 36 (14-59) U/L Alkaline Phosphatase 90 74 (46-116) U/L Total Protein 6.8 6.4 (6.4-8.2) g/dL Albumin 3.1 L 2.9 L (3.4-5.0) g/dL Intake and Output 08/13/24 08/13/24 08/13/24 07:59 15:59 23:59 Intake Total 88.433 / 163.000 191.25 / 191.25 Output Total 125 / 275 175 / 175 Balance -36.567 / -112.000 16.25 / 16.25 Intake: IV 88.433 / 163.000 191.25 / 191.25 Levofloxacin in Dextrose 5 % 150 / 150 750 mg In 150 ml @ 100 mls/hr IV Q24H [facility] Rx#:[id number] dilTIAZem HCL 125 mg In 0.9 % 88.433 / 163.000 41.25 / 41.25 Sodium Chloride 100 ml @ 10 MG/ HR 10 mls/hr IV TITR JANETT Rx#: [id number] Output: Urine 125 / 275 175 / 175 Other: # Bowel Movements 1 EKG today showed atrial fibrillation with rapid ventricular rate, right axis deviation, nonspecific T wave changes Echo today 08/13/2024 Mildly dilated left ventricle Moderately reduced left ventricular systolic function and global function, ejection fraction 35 to 40% Mild pulmonary hypertension, RVSP 41 mmHg Mild mitral regurgitation Dilated IVC with absence of respiratory collapse consistent with elevated central venous pressure, RAP 15 mmHg Prominent pericardial fat pad Chest x-ray Atelectasis and/or infiltrate in the lower lungs bilaterally. Small bilateral pleural effusions. Pulmonary venous hypertension. Remainder of the chest is unremarkable. Assessment and Plan Assessment and Plan (1) Persistent atrial fibrillation with rapid ventricular response: (2) Cardiomyopathy: Assessment and Plan: Probably tachycardia mediated. Also alcoholism could be contributing (3) Acute systolic heart failure: (4) Alcohol abuse: (5) Tobacco abuse: (6) Obesity: (7) Anxiety: Plan I will increase metoprolol to 100 mg p.o. twice daily for better ventricular rate control, consider to switch to metoprolol succinate in light of having cardiomyopathy Continue Eliquis 5 mg twice daily Start Lasix 40 mg IV every 12 hours for today and consider switching to p.o. in the morning Consider adding losartan when heart rate is well-controlled and later on consider adding Aldactone. Patient was highly advised regarding the importance of smoking and alcohol cessation to improve her long-term prognosis. She reports that she will not go back to them again snf plan to follow-up with the patient as outpatient and to consider cardioversion after she is on blood thinner for 4 to 6 weeks
[2024-08-13] MEDS: FUROSEMIDE 40 MG/4 ML VIAL IVP (19:14)
[2024-08-13] MEDS: METOPROLOL TARTRATE 50 MG TABLET 100 MG PO (23:31)
[2024-08-14] VITALS (23 sets, daily range): BP systolic 127–137; BP diastolic 87–97; PULSE 102–138; TEMP 36.5–36.6; O2SAT 95–100
[2024-08-14 05:29] LABS: Basophils Percent Auto 0.6 % (0.2-2.0); Eosinophils Absolute Auto 0.1 10^3/uL (0.0-0.7); Hematocrit 41.6 % (36.0-48.0); Hemoglobin 13.7 g/dL (12.0-16.0); Immature Granulocytes Abs Auto 0.02 10^3/uL (0.00-0.03); Immature Granulocytes Pct Auto 0.3 % (0.0-0.5); Lymphocytes Absolute Auto 2.1 10^3/uL (1.2-3.8); Lymphocytes Percent Auto 32.8 % (20.5-60.0); Mean Corpuscular HGB Conc 32.9 g/dL (29.9-35.2); Mean Corpuscular Hemoglobin 33.7 pg (26.7-34.0); Mean Corpuscular Volume 102.2 fL (81.0-99.0); Mean Platelet Volume 10.8 fL (9.5-13.5); Monocytes Absolute Auto 0.7 10^3/uL (0.3-0.8); Monocytes Percent Auto 11.6 % (1.7-12.0); Neutrophils Absolute Auto 3.4 10^3/uL (1.4-6.5); Neutrophils Percent Auto 52.7 % (43.0-75.0); Platelet Count 254 10^3/uL (150-450); Red Blood Count 4.07 10^6/uL (4.20-5.40); Red Cell Distribution Width 14.6 % (11.0-15.0); White Blood Count 6.4 10^3/uL (4.0-11.0)
[2024-08-14 06:00] LABS: Alanine Aminotransferase 31 U/L (14-59); Albumin Globulin Ratio 0.9; Albumin Level 2.9 g/dL (3.4-5.0); Alkaline Phosphatase 67 U/L (46-116); Anion Gap 12.9; Aspartate Amino Transferase 26 U/L (15-37); BUN Creatinine Ratio 13.8; Bilirubin Total 0.6 mg/dL (0.2-1.0); Calcium 8.8 mg/dL (8.5-10.1); Chloride 106 mmol/L (98-107); Estimated GFR (African America 55 (>=60 mL/min/1.73m^2); Estimated GFR (Non-African Ame 45 (>=60 mL/min/1.73m^2); Globulin 3.3 g/dL; Glucose 112 mg/dL (74-106); Sodium 144 mmol/L (136-145); Total Protein 6.2 g/dL (6.4-8.2)
[2024-08-14] MEDS: FUROSEMIDE 40 MG TABLET PO (06:11)
[2024-08-14 06:19] LABS: Potassium 2.9 mmol/L (3.5-5.1)
[2024-08-14] MEDS: POTASSIUM CHLORIDE 40 MEQ in 0.9 % SODIUM CHLORIDE 250 ML 67.5 MEQ IV (07:41)
[2024-08-14] MEDS: APIXABAN 5 MG TABLET PO (08:12)
[2024-08-14] MEDS: POTASSIUM CHLORIDE 10 MEQ ER TABLET 20 MEQ PO (08:12)
[2024-08-14] MEDS: METOPROLOL TARTRATE 50 MG TABLET 100 MG PO (08:12)
--- NOTE | 2024-08-14 08:46 | CM.NOTE ---
Rounds made with Dr. Vernon, possible discharge to home this afternoon if HR controlled. Pt will f/u with Dr. Vernon next week. Discussed with pt importance of new medications and reasons for taking.
[2024-08-14] MEDS: DILTIAZEM HCL 180 MG CAP.ER.24H PO (09:34)
[2024-08-14 09:43] LABS: BOX Test Reference Lab FIRELANDS
--- NOTE | 2024-08-14 10:32 | CM.NOTE ---
Important Message From Medicare discussed with pt, pt verbalizes understanding and signs paper. Original given to pt and copy placed on pt's chart.
--- NOTE | 2024-08-14 12:44 | P.PN_ITS ---
Progress Note: Subjective Subjective Interval history: Patient does feel better today. Less dyspnea with activity. Heart still races of time and can feel that Exam Constitutional Vital Signs, click to edit/add: Last Vital Signs Temp 97.8 F 08/14/24 07:55 Pulse 118 H 08/14/24 12:13 Resp 6 L 08/14/24 12:13 BP 127/92 H 08/14/24 12:13 Pulse Ox 100 08/14/24 11:44 O2 Del Method Room Air 08/14/24 12:00 Documenting provider has reviewed patient's vital signs: yes Common normals: apparent distress (Distress secondary to the palpitations) Respiratory Common normals: normal respiratory effort, no retractions and clear to auscultation bilaterally Cardio Common normals: irregular rate and irregular rhythm Rate: tachycardic (Improved but still persisting) Rhythm: abnormal rhythm GI Common normals: Normal to inspection, nondistended, normoactive bowel sounds present Extremity Common normals: normal to inspection and no clubbing, cyanosis or edema Neuro Common normals: oriented x3, CN's II-XII intact bilaterally and moves all extremities Progress Note: Objective Labs Labs: Short CBC 08/14/24 Range/Units 04:46 WBC 6.4 (4.0-11.0) 10^3/uL Hgb 13.7 (12.0-16.0) g/dL Hct 41.6 (36.0-48.0) % Plt Count 254 (150-450) 10^3/uL BMP 08/14/24 04:46 Sodium 144 Potassium 2.9 L* Chloride 106 Carbon Dioxide 28.0 BUN 16.0 Creatinine 1.16 H Glucose 112 H Calcium 8.8 Liver Function 08/14/24 Range/Units 04:46 Total Bilirubin 0.6 (0.2-1.0) mg/dL AST 26 (15-37) U/L ALT 31 (14-59) U/L Alkaline Phosphatase 67 (46-116) U/L Albumin 2.9 L (3.4-5.0) g/dL Progress Note: A&P Assessment and Plan (1) Persistent atrial fibrillation with rapid ventricular response: (2) Cardiomyopathy: (3) Acute systolic heart failure: (4) Alcohol abuse: (5) Tobacco abuse: (6) Obesity: (7) Anxiety: Plan Admission findings: Tachycardia, respiratory distress, mild hypotension, a left lower lobe pneumonia with possible left pleural effusion and acute UTI result doing in atrial fibrillation with rapid ventricular response Atrial fibrillation with rapid ventricular response -added beta-poornima, will add calcium channel poornima and Lanoxin, if rate can be improved later today possible discharge but still with significant tachycardia especially with activity, although dyspnea is improved Acute combined congestive heart failure secondary to the above-good diuresis overnight, will maintain on oral diuretics Possible left lower lobe pneumonia-antibiotics Likely acute UTI-culture pending, continue with antibiotics-culture pending Mild acute kidney injury-repeat labs later today are still pending Alcohol abuse history-placed on CIWA scale and as needed medications-stable Admission status: Patient with acute onset of atrial fibrillation with rapid ventricular spots, still tachycardic after the first midnight, medically necessary treatment will span 2 midnights. Inpatient status ?
[2024-08-14] MEDS: DIGOXIN 500 MCG/2 ML AMPUL 250 MCG IV (13:04)
--- NOTE | 2024-08-14 13:32 | PT.DAILY ---
Physical Therapy Daily Note PT Daily Note/Assess Start: 08/14/24 13:28 Freq: Status: Active Protocol: Document 08/14/24 13:29 GREGORIO (Rec: 08/14/24 13:32 GREGORIO [id number]) Visit Not Completed Visit Not Completed Visit Not Completed Nursing request to hold Due to: Other Reason Visit Spoke with nursing and initially set up 2pm time for Not Completed stair training. Nursing calls back 30 min. later stating that patient just fell asleep and has not slept in 48 hours. Also HR has not been well controlled. Nursing request to hold off on stair training this PM to allow patient to sleep. Nursing does not anticipate that patient will be discharged today or that this will hold up future discharge. Physical Therapy Daily Note/Assessment Time In/Time Out Time In 13:30 Time Out 13:30 GG. Functional Abilities and Goals-Complete for Swing Bed Patients Only [id number]. Self-Care [id number]. Mobility
--- NOTE | 2024-08-14 15:30 | P.DS_ITS ---
DS: Providers Provider Date of admission: 08/12/24 21:13 Primary care physician: Non-Staff Physician, Consults: 08/13/24 06:08 Occupational Therapy Eval and Treat Routine Reason for consultation: Only if needed for Rehab Has provider been notified: No Physical Therapy Eval and Treat Routine Reason for consultation: Eval and Treat Has provider been notified: No 08/13/24 07:00 Consult to Cardiology Routine Reason for consultation: a-fib w/RVR Has provider been notified: No DS: Diagnosis Discharge Diagnosis (1) Persistent atrial fibrillation with rapid ventricular response: (2) Cardiomyopathy: (3) Acute systolic heart failure: (4) Alcohol abuse: (5) Tobacco abuse: (6) Obesity: (7) Anxiety: Plan Admission findings: Tachycardia, respiratory distress, mild hypotension, a left lower lobe pneumonia with possible left pleural effusion and acute UTI result doing in atrial fibrillation with rapid ventricular response Atrial fibrillation with rapid ventricular response -added beta-poornima, will add calcium channel poornima and Lanoxin, if rate can be improved later today possible discharge but still with significant tachycardia especially with activity, although dyspnea is improved Acute combined congestive heart failure secondary to the above-good diuresis overnight, will maintain on oral diuretics Possible left lower lobe pneumonia-antibiotics Likely acute UTI-culture pending, continue with antibiotics-culture pending Mild acute kidney injury-repeat labs later today are still pending Alcohol abuse history-placed on CIWA scale and as needed medications-stable Admission status: Patient with acute onset of atrial fibrillation with rapid ventricular spots, still tachycardic after the first midnight, medically necessary treatment will span 2 midnights. Inpatient status DS: Summary Hospital Course Hospital Course: Patient presented to the emergency room with palpitations, found to have atrial fibrillation with rapid ventricular response, echocardiogram shows slightly dilated atrium, but reduced ejection fraction she also was found to have acute combined congestive heart failure. Acute UTI as well. She does have a history of alcohol abuse. She had no withdrawal symptoms throughout the visit, diagnosis would include the acute combined congestive heart failure with reduced ejection fraction and the atrial fibrillation with rapid ventricular spots possibly triggered by the acute UTI. Her heart rate is still elevated at times, patient comfortable with going home, she is on Eliquis so stroke risk is reduced, with the holiday she will be given samples of medications to go home on and she is to see me in the office in 2 days. Medications see this. I will see in the office in 2 days Time Spent with Patient Time attestation: Total time spent providing and/or coordinating discharge services: Exam Constitutional Vital Signs, click to edit/add: Last Vital Signs Temp 97.8 F 08/14/24 07:55 Pulse 133 H 08/14/24 14:00 Resp 6 L 08/14/24 12:13 BP 127/92 H 08/14/24 12:13 Pulse Ox 100 08/14/24 11:44 O2 Del Method Room Air 08/14/24 13:00 Documenting provider has reviewed patient's vital signs: yes Common normals: apparent distress (Distress secondary to the palpitations) Respiratory Common normals: normal respiratory effort, no retractions and clear to auscultation bilaterally Cardio Common normals: irregular rate and irregular rhythm Rate: tachycardic (Improved but still persisting) Rhythm: abnormal rhythm GI Common normals: Normal to inspection, nondistended, normoactive bowel sounds present Extremity Common normals: normal to inspection and no clubbing, cyanosis or edema Neuro Common normals: oriented x3, CN's II-XII intact bilaterally and moves all extremities DS: Data Data Completed and Pending Labs on day of discharge: Labs from last 24 hours 08/14/24 08/12/24 04:46 21:28 WBC 6.4 RBC 4.07 L Hgb 13.7 Hct 41.6 MCV 102.2 H MCH 33.7 MCHC 32.9 RDW 14.6 Plt Count 254 MPV 10.8 Neut % (Auto) 52.7 Lymph % (Auto) 32.8 [place] % (Auto) 11.6 Eos % (Auto) 2.0 Baso % (Auto) 0.6 Neut # (Auto) 3.4 Lymph # (Auto) 2.1 [place] # (Auto) 0.7 Eos # (Auto) 0.1 Baso # (Auto) 0.0 Abs Immat Gran (auto) 0.02 Imm/Tot Granulo (auto) 0.3 Sodium 144 Potassium 2.9 L* Chloride 106 Carbon Dioxide 28.0 Anion Gap 12.9 BUN 16.0 Creatinine 1.16 H Est GFR ( Amer) 55 L Est GFR (Non-Af Amer) 45 L BUN/Creatinine Ratio 13.8 Glucose 112 H Calcium 8.8 Total Bilirubin 0.6 AST 26 ALT 31 Alkaline Phosphatase 67 NT-Pro-B Natriuret Pep 3104.0 H* Total Protein 6.2 L Albumin 2.9 L Globulin 3.3 Albumin/Globulin Ratio 0.9 Ref Lab Order Date 08/12/24 Ref Lab Test Name Urine culture Ref Test Addition Info [facility] Discharge Plan Discharge Disposition: Home, Self-Care Condition: Good Discharge Medications: New furosemide 40 mg Tablet 40 mg PO Q12H Qty: 60 11RF Eliquis 5 mg Tablet 5 mg PO BID Qty: 60 11RF potassium chloride 20 mEq tablet extended release 20 meq PO BID Qty: 60 11RF levofloxacin 500 mg tablet 500 mg PO DAILY 7 Days Qty: 7 0RF metoprolol tartrate 100 mg tablet 100 mg PO BID Qty: 60 11RF digoxin [Lanoxin] 250 mcg (0.25 mg) tablet 250 mcg PO DAILY Qty: 30 11RF Activity: increase activity as tolerated Diet: advance to your usual diet Print Language: [place] Patient Instructions: A-fib (Atrial Fibrillation) (DC) Forms: Portal Instructions Follow Up Appointments: Call Dr Vernon's office to see him on TUESDAY [phone]
--- NOTE | 2024-08-14 16:08 | PC.NURSE ---
discharge instructions given to pt and daughter. both verbalized understanding. pt taken to exit via wc with belongings. discharged to private vehicle.
--- NOTE | 2024-08-16 15:28 | CM.DCFOLLOWU ---
Person spoke with: patient How are you feeling? well, out shopping now with daughter How is your pain? none Did you understand your discharge instructions?yes Do you have any questions about your discharge instructions?no Were you given any prescriptions at discharge?yes Were you able to get your prescriptions filled?yes Do you understand how to take your medications as ordered?yes Do you have any questions about your follow up appointment and do you plan to keep your follow up appointment? no questions, saw Dr. Vernon today and follow up with lead infrastructure architect as well scheduled Is there anything else that you would like to discuss?no Questions/Comments/Concerns/Other:n/a
== END 2024-08-14 16:03 | disposition home or self-care (01) | DRG 308 ==
LOC: ER 19:52 → ICU 21:18
PROVIDERS: Physician Assistant; Registered Nurse; Admitting Provider Family Medicine; Emergency Provider Emergency Medicine; Visit Provider Family Medicine
DX: I48.19 Other persistent atrial fibrillation (principal); I50.41 Acute combined systolic (congestive) and diastolic (congestive) heart failure; J18.9 Pneumonia, unspecified organism; N39.0 Urinary tract infection, site not specified; N17.9 Acute kidney failure, unspecified; F17.200 Nicotine dependence, unspecified, uncomplicated; I95.9 Hypotension, unspecified; I42.9 Cardiomyopathy, unspecified; F10.10 Alcohol abuse, uncomplicated; F41.9 Anxiety disorder, unspecified; E66.9 Obesity, unspecified; Y90.0 Blood alcohol level of less than 20 mg/100 ml; Z68.30 Body mass index [BMI] 30.0-30.9, adult
CPT/HCPCS: 36415; 71045; 80053; 80061; 80320; 81001; 82800; 83036; 83605; 83880; 84436; 84443; 84484; 85025; 85610; 85730; 87086; 93005; 93306; 94667; 94761; 96365; 96366; 96372; 96376; 97161; 97165; 99285; 99406; J1160; J1650; J1940; J3480

== ENCOUNTER 2024-09-11 13:07 | Outpatient (OUT) | payer MEDICARE, BC, SELFPAY ==
--- OUTSIDE RECORDS SUMMARY | 2024-09-11 13:14 | XMS_ITS | CCD ---
Author Organization [facility] Care Team Providers Care Cotton Ginner Name Role Phone REQUEST, DR NONE LISTED Admitting Unavaila ble REQUEST, NONE LISTED Consulting Unavaila ble REQUEST, NONE LISTED Attending Unavaila BILLY Snow Admitting Unavailable BILLY BEAUCHAMP Consulting Unavailable BILLY BEAUCHAMP Attending Unavailable YONAS ESPINOSA Attending Unavailable BAYLEE ODONNELL Referring Unavailable YONAS ESPINOSA Attending Unavailable [facility] Unavailable Mauricio Vernon Attending Unavailable Mauricio Vernon Admitting Unavailable Results Test Name Value Interpretation Reference Range Facil it Urine Cultureon 08-12-2024 Bacteria identified Cx Nom (U) 30,000 colonies/ml mixed bacterial skin contaminants 2 Days PERFORMED BY: [place] [address] PATHOLOGIST FIRE RANGER GUIDO Doshi [facility] Comment on above: Performed By: #### C UU #### [address] Encounters Encounter Date Encounter Type Care Provider Facility Start: 08-12-2024 End: 08-12-2024 ambulatory [facility] Facility:[facility] Start: 07-27-2023 End: 07-27-2023 ambulatory YONAS ESPINOSA Not Available Start: 07-22-2023 End: 07-22-2023 ambulatory YONAS ESPINOSA Not Available Start: 12-10-2020 End: 12-11-2020 ambulatory BILLY BEAUCHAMP Facility: Start: 11-19-2020 End: 11-20-2020 ambulatory NONE LISTED REQUEST Facility: Payers Date Payer Category Payer Unknown [id number] 2011 Medicare [id number] 1958 Self-pay 1945 Unknown [id number] 1945 Unknown [id number] Unknown [id number] Unknown [id number] Unknown [id number] Summary Purpose Family History No Family History Records FoundNo Family History Records FoundNo Family History Records Found Advance Directives No Advanced Directives Records FoundNo Advanced Directives Records FoundNo Advanced Directives Records Found Additional Source Comments INFORMATION SOURCE (unrecogn ized section and content) DATE CREATED AUTHOR 12/07/2020 [facility] DATE CREATED AUTHOR AUTHOR'S ORGANIZ ATION 07/29/2023 [facility] EPIC DATE CREATED AUTHOR AUTHOR'S ORGANIZ ATION 08/17/2024 [facility] FOR RECORDS PERTAINING TO PATIENTS WHO ARE [...] BE BASED ON THE PRIMARY CLINICAL RECORDS. [facility] [employer] provides no warranty or guarantee of the accuracy or completeness of information in this document.
[2024-09-11 13:28] LABS: Basophils Percent Auto 0.5 % (0.2-2.0); Eosinophils Absolute Auto 0.2 10^3/uL (0.0-0.7); Eosinophils Percent Auto 2.6 % (0.9-7.0); Hematocrit 47.7 % (36.0-48.0); Hemoglobin 16.2 g/dL (12.0-16.0); Immature Granulocytes Abs Auto 0.02 10^3/uL (0.00-0.03); Immature Granulocytes Pct Auto 0.2 % (0.0-0.5); Lymphocytes Absolute Auto 3.3 10^3/uL (1.2-3.8); Lymphocytes Percent Auto 40.1 % (20.5-60.0); Mean Corpuscular Hemoglobin 33.4 pg (26.7-34.0); Mean Corpuscular Volume 98.4 fL (81.0-99.0); Mean Platelet Volume 10.3 fL (9.5-13.5); Monocytes Absolute Auto 0.6 10^3/uL (0.3-0.8); Monocytes Percent Auto 7.8 % (1.7-12.0); Neutrophils Percent Auto 48.8 % (43.0-75.0); Platelet Count 214 10^3/uL (150-450); Red Blood Count 4.85 10^6/uL (4.20-5.40); Red Cell Distribution Width 13.2 % (11.0-15.0); White Blood Count 8.2 10^3/uL (4.0-11.0)
[2024-09-11 14:18] LABS: Anion Gap 10.3; BUN Creatinine Ratio 9.6; Calcium 8.7 mg/dL (8.5-10.1); Carbon Dioxide 30.6 mmol/L (21.0-32.0); Chloride 103 mmol/L (98-107); Estimated GFR (African America 46 (>=60 mL/min/1.73m^2); Estimated GFR (Non-African Ame 38 (>=60 mL/min/1.73m^2); Glucose 109 mg/dL (74-106); Sodium 141 mmol/L (136-145)
[2024-09-11 14:29] LABS: Potassium 2.9 mmol/L (3.5-5.1)
== END 2024-09-11 13:08 | disposition home or self-care (01) ==
LOC: LAB 13:09
PROVIDERS: PCP Family Medicine; Visit Provider Family Medicine
DX: K21.9 Gastro-esophageal reflux disease without esophagitis (principal); I11.0 Hypertensive heart disease with heart failure; I50.30 Unspecified diastolic (congestive) heart failure
CPT/HCPCS: 36415; 80048; 83880; 85025

== ENCOUNTER 2024-09-11 15:20 | Emergency (ER) | payer MEDICARE, BC, SELFPAY ==
[2024-09-11 15:34] VITALS: BP 131/98; PULSE 86; TEMP 37; O2SAT 97; BMI 28.7
--- NOTE | 2024-09-11 15:52 | ED.GENADUL1 ---
HPI HPI - General Adult General Chief complaint: Recheck/Abnormal Lab/Rx Stated complaint: low potassium Time Seen by Provider: 09/11/24 15:32 Source: patient Mode of arrival: walk-in Limitations: no limitations History of Present Illness HPI narrative: 79-year-old female presents to the emergency department for a chief complaint of low potassium, from a lab test that was drawn today. She was sent in by her PCPs office for evaluation. She has no symptoms at all. She is supposed to be taking a potassium supplement but does not because the pills are too big and she will not take them. She has no palpitations or muscle pain or weakness. Related Data Previous Rx's ?Medication ?Instructions ?Recorded apixaban 5 mg tablet (Eliquis) 5 mg PO BID #60 tabs 08/14/24 furosemide 40 mg tablet 40 mg PO Q12H #60 tabs 08/14/24 metoprolol tartrate 100 mg tablet 100 mg PO BID #60 tabs 08/14/24 potassium chloride 20 mEq 20 meq PO BID #60 tabs 08/14/24 tablet,extended release potassium bicarbonate-citric acid 50 meq (2 x 25 mEq) PO DAILY #30 ea 09/11/24 25 mEq effervescent tablet (Effer-K) Allergies Allergy/AdvReac Type Severity Reaction Status Date / Time No Known Drug Allergies Allergy Verified 09/11/24 15:34 Opioid HPI Opioid Management Most Recent Opioid Data: Last ORT Total Score 0 08/12/24 21:38 08/12/24 Last ORT Risk Category Low Risk 08/12/24 21:38 08/12/24 Review of Systems ROS Narrative A ten point review of systems is negative except as noted above. PFSH PFSH Medical History Anxiety ?F41.9 - Anxiety disorder, unspecified (ICD-10) Smoker ?F17.200 - Nicotine dependence, unspecified, uncomplicated (ICD-10) Restless leg ?G25.81 - Restless legs syndrome (ICD-10) Surgical History (Updated 08/12/24 @ 22:54 by Libby Amaya) History of cataract surgery ?Z98.49 - Cataract extraction status, unspecified eye (ICD-10) H/O tubal ligation ?Z98.51 - Tubal ligation status (ICD-10) Social History (Updated 07/21/23 @ 07:09 by Rocio Pruitt) Within the past year, how often did you have a drink containing alcohol: 4 or more times a week Within the past year, how many standard drinks containing alcohol did you have on a typical day: 3 or 4 Within the past year, how often did you have six or more drinks on one occasion: weekly Total score: 5 Score interpretation: A score of 3 or more indicates drinking is likely to affect patient's safety. Smoking status: Current every day smoker Non-prescribed substance use: denies use Previous occupational history: retired Highest level of school completed/degree received: high school graduate Little interest or pleasure in doing things: not at all Feeling down, depressed, or hopeless: not at all Do you think of yourself as: straight/heterosexual Gender Identity: female Exam Narrative Exam Narrative: Nurses note and vital signs reviewed and patient is not hypoxic. General: The patient appears well and in no apparent distress. Patient is resting comfortably sitting on the examination chair. Skin: Warm, dry, no pallor noted. There is no rash noted. Head: Normocephalic, atraumatic Eye: Normal conjunctiva, no drainage Ears, Nose, Mouth, and Throat: oral mucosa is moist. Nares patent. Cardiovascular: Regular Rate and Rhythm Respiratory: Patient is in no distress, no accessory muscle use, lungs are clear to auscultation, no wheezing, rales or rhonchi Back: non-tender GI: Soft and nontender Musculoskeletal: The patient has no evidence of calf tenderness, no pitting edema, symmetrical pulses noted bilaterally Neurological: A&O, normal speech Psychiatric: Cooperative Constitutional Vital Signs, click to edit/add: Last Vital Signs Temp 98.6 F 09/11/24 15:34 Pulse 86 09/11/24 15:34 Resp 20 09/11/24 15:34 BP 131/98 H 09/11/24 15:34 Pulse Ox 97 09/11/24 15:34 O2 Del Method Room Air 09/11/24 15:34 Course Vital Signs Vital signs: Vital Signs Temperature 98.6 F 09/11/24 15:34 Pulse Rate 86 09/11/24 15:34 Respiratory Rate 20 09/11/24 15:34 Blood Pressure 131/98 H 09/11/24 15:34 Pulse Oximetry 97 09/11/24 15:34 Oxygen Delivery Method Room Air 09/11/24 15:34 Temperature 98.6 F 09/11/24 15:34 Pulse Rate 86 09/11/24 15:34 Respiratory Rate 20 09/11/24 15:34 Blood Pressure 131/98 H 09/11/24 15:34 Pulse Oximetry 97 09/11/24 15:34 Oxygen Delivery Method Room Air 09/11/24 15:34 Medical Decision Making MDM Narrative Medical decision making narrative: Case discussed with Dr. Vernon. The patient had an elevated BNP also earlier today but she has no shortness of breath. She has a normal O2 saturation and is not tachypneic. She has no respiratory symptoms. We will switch her from the potassium tablet to effervescent potassium and she is able to be discharged home. Treatment diagnosis and follow-up were discussed with the patient. Differential Diagnosis Differential Diagnosis: Hypokalemia, medication noncompliance Lab Data Lab results reviewed: Yes I reviewed the patient's lab results Discharge Plan Discharge Chief Complaint: Recheck/Abnormal Lab/Rx Clinical Impression: Hypokalemia Patient Disposition: Home, Self-Care Time of Disposition Decision: 16:13 Condition: Good Mode of Transportation: Private Vehicle Prescriptions / Home Meds: New Effer-K 25 mEq tablet, effervescent 50 meq PO DAILY Qty: 30 0RF No Action furosemide 40 mg Tablet 40 mg PO Q12H Qty: 60 11RF Eliquis 5 mg Tablet 5 mg PO BID Qty: 60 11RF potassium chloride 20 mEq tablet extended release 20 meq PO BID Qty: 60 11RF metoprolol tartrate 100 mg tablet 100 mg PO BID Qty: 60 11RF Print Language: Liberian Additional Instructions: No need to take the potassium tablets. Referrals: Mauricio Vernon MD [Primary Care Provider] - 1 week
[2024-09-11] MEDS: POTASSIUM BICARBONATE/CIT 25 MEQ TABLET EFF 50 MEQ PO (16:25)
--- NOTE | 2024-09-11 17:21 | ECG_ITS ---
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
== END 2024-09-11 16:33 | disposition home or self-care (01) ==
PROVIDERS: Emergency Provider Emergency Medicine; PCP Family Medicine
DX: E87.6 Hypokalemia (principal); K21.9 Gastro-esophageal reflux disease without esophagitis; I11.0 Hypertensive heart disease with heart failure; I50.30 Unspecified diastolic (congestive) heart failure; Z98.51 Tubal ligation status; F17.200 Nicotine dependence, unspecified, uncomplicated
CPT/HCPCS: 36415; 80048; 83880; 85025; 93005; 99283